=== PATIENT | female | born 1990 | race Caucasian/White ===

== ENCOUNTER → 2020-05-24 | Outpatient (CLI) | payer OTHER, SELFPAY ==
[2020-05-27 07:07] LABS: Chlamydia By Nucleic Acid AMP Negative (Negative)
[2020-05-27 12:43] LABS: Gonococcus By Nucleic Acid AMP Negative (Negative)
== END | disposition home or self-care (01) ==
LOC: LABSPEC 13:21
PROVIDERS: Visit Provider Student in an Organized Health Care Education/Training Program
DX: Z11.3 Encounter for screening for infections with a predominantly sexual mode of transmission (principal); Z32.01 Encounter for pregnancy test, result positive
CPT/HCPCS: 87491; 87591

== ENCOUNTER → 2020-06-07 09:08 | Outpatient (CLI) | payer OTHER, SELFPAY ==
[2020-06-07 10:46] LABS: Absolute Lymphocyte Count 1.84 X10^3/uL (0.83-4.51); Absolute Neutrophil Count 5.3 X10^3/uL (2.0-7.7); Basophil# 0.04 X10^3/uL; Basophil% 0.5 % (0-1); Eosinophil# 0.06 X10^3/uL; Eosinophils% 0.8 % (0-5); Hematocrit 41.6 % (37-47); Hemoglobin 12.8 g/dL (12.0-15.0); Lymphocyte # 1.84 X10^3/ul (4.0); Lymphocyte % 23.9 % (19-41); Mean Corp Hgb Conc 30.8 g/dL (32-36); Mean Corpuscular Hgb 24.4 pg (27.0-32.0); Mean Corpuscular Volume 79.4 fL (81-99); Mean Platelet Vol. 9.5 fl (6.2-12.0); Monocyte# 0.46 X10^3/uL; NRBC Flagged by Analyzer 0 % (0-5); Neutrophil # 5.27 X10^3/uL (2.7-7.7); Neutrophil % 68.5 % (47-70); Platelet Count 275 K/mm3 (150-450); RBC Distribution Width CV 18.2 % (11.6-14.6); RBC Distribution Width SD 52.1 fl (35.1-43.9); Red Blood Count 5.24 M/mm3 (4.2-5.4); White Blood Count 7.7 K/mm3 (4.4-11.0)
[2020-06-07 10:51] LABS: Glucose Challenge Gest 1H 50g 91 mg/dL (70-140)
[2020-06-07 11:35] LABS: HIV - WCH Non-Reactive (Nonreactive); Hepatitis B Surface Antigen Non-Reactive (Nonreactive); Hepatitis C Antibody Non-Reactive (Nonreactive); Rubella IgG Reactive (Nonreactive)
[2020-06-09 01:10] LABS: Prenatal RPR NONREACTIVE (NONREACTIVE)
== END ==
PROVIDERS: Visit Provider Student in an Organized Health Care Education/Training Program
DX: Z34.81 Encounter for supervision of other normal pregnancy, first trimester (principal)
CPT/HCPCS: 36415; 82950; 85025; 86703; 86762; 86803; 87086; 87088; 87340

== ENCOUNTER → 2020-09-27 08:40 | Outpatient (CLI) | payer OTHER, SELFPAY ==
[2020-09-27 10:58] LABS: Hematocrit 34.1 % (37-47); Hemoglobin 10.7 g/dL (12.0-15.0); Mean Corp Hgb Conc 31.4 g/dL (32-36); Mean Corpuscular Hgb 26.3 pg (27.0-32.0); Mean Corpuscular Volume 83.8 fL (81-99); Mean Platelet Vol. 8.8 fl (6.2-12.0); Platelet Count 263 K/mm3 (150-450); RBC Distribution Width CV 14.5 % (11.6-14.6); RBC Distribution Width SD 43.7 fl (35.1-43.9); Red Blood Count 4.07 M/mm3 (4.2-5.4); White Blood Count 11.5 K/mm3 (4.4-11.0)
[2020-09-27 11:06] LABS: Glucose Challenge Gest 1H 50g 115 mg/dL (70-140)
== END ==
PROVIDERS: Visit Provider Student in an Organized Health Care Education/Training Program
DX: Z34.82 Encounter for supervision of other normal pregnancy, second trimester (principal)
CPT/HCPCS: 36415; 82950; 85027

== ENCOUNTER → 2020-12-19 | Outpatient (CLI) | payer OTHER, SELFPAY | END | disposition home or self-care (01) | LOC: LABSPEC 17:01 | PROVIDERS: Visit Provider Obstetrics & Gynecology | DX: Z36.85 Encounter for antenatal screening for Streptococcus B (principal) | CPT/HCPCS: 87081 ==

== ENCOUNTER 2021-01-23 18:55 | Inpatient (IN) | payer OTHER, SELFPAY ==
[2021-01-23 19:21] VITALS: PULSE 91; O2SAT 98
[2021-01-23 19:22] VITALS: BP 141/94; PULSE 101; TEMP 36.5
[2021-01-23 19:42] VITALS: BMI 42.3
[2021-01-23 19:48] LABS: Absolute Lymphocyte Count 2.65 X10^3/uL (0.83-4.51); Absolute Neutrophil Count 8.2 X10^3/uL (2.0-7.7); Basophil# 0.05 X10^3/uL; Basophil% 0.4 % (0-1); Eosinophil# 0.09 X10^3/uL; Eosinophils% 0.8 % (0-5); Hematocrit 35.7 % (37-47); Hemoglobin 11.5 g/dL (12.0-15.0); Lymphocyte # 2.65 X10^3/ul (0.83-4.51); Lymphocyte % 22.5 % (19-41); Mean Corp Hgb Conc 32.2 g/dL (32-36); Mean Corpuscular Hgb 26.6 pg (27.0-32.0); Mean Corpuscular Volume 82.4 fL (81-99); Mean Platelet Vol. 9.1 fl (6.2-12.0); Monocyte# 0.75 X10^3/uL; Monocyte% 6.4 % (0-10); NRBC Flagged by Analyzer 0 % (0-5); Neutrophil # 8.17 X10^3/uL (2.7-7.7); Neutrophil % 69.2 % (47-70); Platelet Count 229 K/mm3 (150-450); RBC Distribution Width CV 15.6 % (11.6-14.6); RBC Distribution Width SD 46.5 fl (35.1-43.9); Red Blood Count 4.33 M/mm3 (4.2-5.4); White Blood Count 11.8 K/mm3 (4.4-11.0)
[2021-01-23 20:26] VITALS: BP 127/90; PULSE 86
[2021-01-23] MEDS: miSOPROStol 25 MCG TABLET VAGINAL (20:27)
[2021-01-24] VITALS (39 sets, daily range): BP systolic 88–138; BP diastolic 49–90; PULSE 56–107; TEMP 36.2–36.9; O2SAT 82–100
[2021-01-24] MEDS: miSOPROStol 25 MCG TABLET VAGINAL ×3 (00:30→08:42)
--- NOTE | 2021-01-24 07:18 | PCM.HP.BLA ---
History and Physical Date of Admission: 01/23/21 Chief complaint: Induction of labor postdates History of present illness: 30-year-old G1, P0 at 41 weeks and 3 days with ENEIDA: 01/13/2021 by 6wk U/s arrives for induction of labor postdates. Denies headache, visual changes, chest pain, shortness of breath, nausea vomiting, right upper quadrant pain. Patient states good movement. Obstetric history: G1: Current Past medical history: None Medications: None Past surgical history: Recluse teeth extraction, appendectomy Allergies: No known drug allergies Family history: Denies history DVT or PE Social history: Denies smoking, alcohol use, drug use Review of systems: Besides above pertinent positives a full review of systems was performed and found to be negative Physical exam: Vital signs: Blood pressure 127/89 pulse 85 General: Normal-appearing no acute distress HEENT: Normocephalic atraumatic no cervical of adenopathy Cardiac/respiratory: No use of accessory muscles, nonlabored breathing Abdomen: Soft, nontender, gravid Extremities: No peripheral edema normal peripheral pulses Psych: Normal affect normal demeanor nonpressured speech Labs: White blood cell count 11.8 hemoglobin 11.5 hematocrit 35.7% platelets 229. Blood type a positive antibody negative Assessment and plan: 30-year-old at 41 weeks and 3 days for induction of labor Admit labor and delivery CEFM GBS negative Cytotec 25 mcg vaginally Routine orders Anesthesia to see
--- NOTE | 2021-01-24 12:55 | PN.OBGYN_ITS ---
Subjective Subjective Patient starting to feel increased pain with contractions Objective Data Objective Data Vital Signs: Vital Signs Temp Pulse BP Pulse Ox 97.4 F L 80 134/89 H 99 01/24/21 12:17 01/24/21 12:17 01/24/21 12:17 01/24/21 07:18 Weight: 239 lb Body Mass Index (BMI) 42.3 Lab / Micro Data Result Diagrams: 01/23/21 19:30 Labs: Laboratory Results - last 24 hr 01/23/21 19:30: WBC 11.8 H, RBC 4.33, Hgb 11.5 L, Hct 35.7 L, MCV 82.4, MCH 26.6 L, MCHC 32.2, RDW Std Deviation 46.5 H, RDW Coeff of Faviola 15.6 H, Plt Count 229, MPV 9.1, Immature Gran % (Auto) 0.700, Neut % (Auto) 69.2, Lymph % (Auto) 22.5, [place] % (Auto) 6.4, Eos % (Auto) 0.8, Baso % (Auto) 0.4, Absolute Neuts (auto) 8.2 H, Absolute Lymphs (auto) 2.65, Nucleated RBC % 0 01/23/21 19:30: Blood Type A POSITIVE, Antibody Screen NEGATIVE Micro: Microbiology 01/23/21 19:35 Nasal Secretion SARS-CoV-2 Antigen (Rapid) - Final Physical Exam Const alert, oriented x3, no apparent distress, average body habitus, healthy appearing and well nourished HEENT normocephalic and moist oral mucous membranes Head and Scalp: atraumatic Face and Sinus: normal facial exam Eyes PERRL Neck full ROM Resp normal respiratory effort, no retractions and no use of accessory muscles Narrative: Cervical exam: /-3 AROM clear fluid Extremity normal to inspection, full ROM and no clubbing, cyanosis or edema Skin no rashes or lesions noted Psych mental status grossly normal, affect normal, speech normal and activity/motor behavior normal Assessment & Plan (1) : PLAN: Patient seen and examined. Starting to feel increased pain with contractions. Discussed epidural. AROM clear fluid. Will transition to Pitocin for induction
[2021-01-24] MEDS: Oxytocin 30 units/NS 500 ml 30 UNITS/500 ML IV.SOLN IV (13:14)
[2021-01-24] MEDS: Lactated Ringers 1,000 ML 50 ML IV (13:15)
[2021-01-24] MEDS: Lactated Ringers 500 ML 999 ML IV ×3 (14:41→20:22)
[2021-01-24] MEDS: fentaNYL-bupivacaine (epidural) 100 ML BAG EPIDURAL ×2 (15:25→20:04)
[2021-01-24] MEDS: Ondansetron 4 MG/2 ML Vial IV (15:50)
[2021-01-24] MEDS: 0.9% Normal Saline Single 100 ML IV.SOLN. INTRA-UTER (19:25)
[2021-01-24] MEDS: Lactated Ringers 1,000 ML 200 ML IV (20:22)
[2021-01-25] VITALS (35 sets, daily range): BP systolic 98–163; BP diastolic 38–98; PULSE 55–142; RESP 14; TEMP 36.2–37.6; O2SAT 97–100
[2021-01-25] MEDS: fentaNYL-bupivacaine (epidural) 100 ML BAG EPIDURAL ×4 (01:13→16:36)
[2021-01-25] MEDS: Lactated Ringers 1,000 ML 200 ML IV ×3 (01:46→13:04)
[2021-01-25] MEDS: Lactated Ringers 500 ML 999 ML IV ×2 (05:24→09:24)
--- NOTE | 2021-01-25 09:14 | PCM.PN.OB ---
Subjective Subjective No complaints. She is very comfortable and denies painfulness. Objective Data Objective Data Vital Signs: Vital Signs Temp Pulse BP Pulse Ox 97.6 F L 64 98/59 L 100 01/25/21 08:20 01/25/21 08:20 01/25/21 08:20 01/25/21 08:20 Weight: 108.409 kg Body Mass Index (BMI) 42.3 Intake & Output: Intake and Output for Last 24 Hours 01/23/21 01/24/21 01/25/21 23:59 23:59 23:59 Intake Total 4053.10 / 4053.10 3020.70 / 3020.70 Output Total 1800 / 1800 Balance 4053.10 / 3053.10 1220.70 / 1220.70 Lab / Micro Data Result Diagrams: 01/23/21 19:30 Micro: Microbiology 01/23/21 19:35 Nasal Secretion SARS-CoV-2 Antigen (Rapid) - Final Physical Exam Narrative GEN - NAD, AAO x 3 FHR 135, moderate variability, + late decelerations TOCO 3/10 min SVE 6/80/-2 Assessment & Plan (1) : QUALIFIERS: Weeks of gestation: 41 weeks Qualified Code(s): Z3A.41 - 41 weeks gestation of (2) 41 weeks gestation of : PLAN: 41 5/7 wga, IOL Cat II FHR Intrauterine resusc for late decelerations, will d/c pitocin if unresponsive to initial measures Ovarall reassuring maternal and status Continue to observe in labor
[2021-01-25] MEDS: 0.9% Saline Lock 10 ML Syringe IV ×2 (10:55→19:35)
[2021-01-25] MEDS: Ondansetron 4 MG/2 ML Vial IV (13:17)
[2021-01-25] MEDS: Oxytocin 30 units/NS 500 ml 30 UNITS/500 ML IV.SOLN 999 UNITS IV (17:29)
[2021-01-25] MEDS: Methylergonovine 0.2 MG/ML Ampul IM (17:31)
--- NOTE | 2021-01-25 17:56 | OP.PCM_ITS ---
Maternal Data Information Final ENEIDA: 01/13/21 Final ENEIDA Source: [place] <20 weeks [place] Doctor Who Attended Delivery: Amanda Padilla Vaginal Delivery Maternal Presentation Maternal Presentation: Medically Indicated Induction (Postdatism) Type of Induction: Cytotec Medical Reason for Induction: Post term Operative Information Date of Procedure: 01/25/21 Pre-Operative Diagnosis: Postdate Intrauterine Post-Operative Diagnosis: Postdate Intrauterine Surgery / Procedure Performed: Vacuum Assisted Vaginal Delivery Type of Anesthesia: Epidural Estimated Blood Loss: 250 cc Fluids Replaced: Crystalloid Findings Description of Procedure: Spontaneous vaginal delivery of a viable female infant with Apgars of 8/8 from an occiput anterior presentation with lightly stained meconium fluid and three-vessel lightly meconium stained placenta. Cord around the neck x1 loose. First-degree midline episiotomy extended to a second-degree midline laceration repaired with 3-0 Vicryl suture under epidural. Kiwi vacuum used x3 gentle pulls from low outlet to assist with delivery of the head due to variable decelerations and increasing maternal fatigue. Sponges okay. Delivery physician: Austin Ayala MD. Presentation: Vertex Amniotic Membrane Rupture Type: Artificial Amniotic Fluid Description: Lightly stained meconium Placental Delivery Description: Spontaneous Placenta Disposition: [facility] Cord Vessel Description: 3 Vessels Cord Entanglement: Around neck x 1, loose Cord Gases: ABG and VBG Infant A Gender: Female (1 minute): 8 (5 minute): 8 Post Vaginal Delivery Medications Given After Delivery: IV Pitocin and IM Methergin Episiotomy Description: Midline and 1st degree Laceration: Midline and 2nd degree Complication Complications: None
--- NOTE | 2021-01-25 18:04 | PCM.DC ---
Documented by User: Dr. Austin Ayala MD 01/25/21 18:05 Discharge Instructions Diet Discharge Diet: No restrictions Activity Discharge Activity: May Drive (In 1 to 2 days if not taking narcotic pain medication), May Shower and May Take a Tub Bath May resume sexual activity in: 4-6 weeks Additional Activity Instructions:: Nothing in the vagina for 4-6 weeks. You may return to work/school in 6 weeks. Dressing / Incision Call your doctor if you observe: Fever of 101 or Higher, Inability to urinate, Inability to have a bowel movement and Using more than 1 pad per hour Follow Up Care Please Follow Up With: Ignacia Hwang DO When: Call [phone] to make an appointment with your doctor in 6 weeks. Test Results: Test results from this visit will be discussed in further detail at your follow-up appointment, if applicable. Discharge Plan Admission Admit Date/Time: 01/23/21 18:55 Primary Reason for Your Visit: Vaginal Delivery Attending Provider: Ignacia Hwang Discharge Orders/Prescriptions Prescriptions: No Action Colace 50 mg Capsule 50 mg PO DAILY RF: 0 ferrous sulfate [iron] 325 mg (65 mg iron) Tablet 325 mg PO DAILY RF: 0 DHA 200 mg Capsule 1 mg PO DAILY RF: 0 Disposition Disposition (needs filled in before D/C Order can be placed): Home, Self Care Documented by User: Dr. Ignacia Hwang DO 01/27/21 08:26 Discharge Instructions Diet Discharge Diet: No restrictions Activity Discharge Activity: Return to Normal Activity May resume sexual activity in: 4-6 weeks Weight Bearing Status: Weight bearing as tolerated Lifting Restrictions: Less than 25 pounds Dressing / Incision Call your doctor if you observe: Fever of 101 or Higher, Change in Color, Using more than 1 pad per hour, Shortness of breath, Dizziness, Swelling in the ankles, Chest pain and Calf discomfort Follow Up Care Please Follow Up With: Leonid Hwang When: 2 week telehealth, 6 week Discharge Plan Admission Admit Date/Time: 01/23/21 18:55 Primary Reason for Your Visit: Vaginal Delivery Attending Provider: Ignacia Hwang Discharge Orders/Prescriptions Prescriptions: No Action Colace 50 mg Capsule 50 mg PO DAILY RF: 0 ferrous sulfate [iron] 325 mg (65 mg iron) Tablet 325 mg PO DAILY RF: 0 DHA 200 mg Capsule 1 mg PO DAILY RF: 0 Disposition Disposition (needs filled in before D/C Order can be placed): Home, Self Care
[2021-01-25] MEDS: Ibuprofen 600 MG Tablet PO (19:35)
[2021-01-25] MEDS: Acetaminophen 500 MG Tablet 1000 MG PO (19:36)
[2021-01-26] VITALS (15 sets, daily range): BP systolic 117–143; BP diastolic 75–96; PULSE 74–99; RESP 16–18; TEMP 36.3–36.7; O2SAT 97–98
[2021-01-26] MEDS: Ibuprofen 600 MG Tablet PO ×3 (02:12→22:41)
[2021-01-26] MEDS: Acetaminophen 500 MG Tablet 1000 MG PO ×3 (02:13→22:42)
--- NOTE | 2021-01-26 03:11 | NURSING ---
report given Nicolasa Cuevas RN who is assuming care of pt at this time
--- NOTE | 2021-01-26 03:21 | NURSING ---
This RN assuming care of patient and infant at this time. Report received from Elida EAST.
--- NOTE | 2021-01-26 07:33 | PN.OBGYN_ITS ---
Subjective Subjective No overnight complaints. Pain well controlled. Objective Data Objective Data Vital Signs: Vital Signs Temp Pulse Resp BP Pulse Ox 97.3 F L 83 16 117/79 97 01/26/21 04:04 01/26/21 04:05 01/26/21 04:04 01/26/21 04:05 01/25/21 23:36 Oxygen Delivery Method Room Air Weight: 239 lb Body Mass Index (BMI) 42.3 Intake & Output: Intake and Output for Last 24 Hours 01/24/21 01/25/21 01/26/21 23:59 23:59 23:59 Intake Total 4053.10 / 4053.10 6423.54 / 6423.54 Output Total 3450 / 3450 Balance 4053.10 / 3053.10 2973.54 / 2973.54 Lab / Micro Data Result Diagrams: 01/23/21 19:30 Micro: Microbiology 01/23/21 19:35 Nasal Secretion SARS-CoV-2 Antigen (Rapid) - Final Physical Exam Const alert, oriented x3, no apparent distress, average body habitus, healthy appearing and well nourished Exam Limitations: no limitations HEENT normocephalic and moist oral mucous membranes Head and Scalp: atraumatic Face and Sinus: normal facial exam Eyes PERRL Neck full ROM Resp normal respiratory effort, no retractions and no use of accessory muscles GI normal to inspection, nondistended, normoactive bowel sounds Psych mental status grossly normal, affect normal, speech normal and activity/motor behavior normal Assessment & Plan (1) Vaginal delivery: PLAN: day 1 status post vacuum-assisted vaginal delivery. Breast-feeding. Pain well controlled. Baby getting antibiotics per director of property management. Likely home tomorrow
[2021-01-27 02:55] VITALS: BP 128/84; PULSE 78; RESP 16; TEMP 36.5; O2SAT 97
[2021-01-27 03:00] VITALS: BP 128/84; PULSE 71
[2021-01-27 07:36] VITALS: BP 117/75; PULSE 87
[2021-01-27 07:38] VITALS: BP 117/75; PULSE 87; RESP 16; TEMP 36.6
--- NOTE | 2021-01-27 08:23 | PCM.PN.OB ---
Subjective Subjective day 2 status post vacuum assisted vaginal delivery. Feeling well. Baby no longer on antibiotics. Lochia minimal. Breast-feeding. Objective Data Objective Data Vital Signs: Vital Signs Temp Pulse Resp BP Pulse Ox 97.8 F 87 16 117/75 97 01/27/21 07:38 01/27/21 07:38 01/27/21 07:38 01/27/21 07:38 01/27/21 02:55 Oxygen Delivery Method Room Air Weight: 108.409 kg Body Mass Index (BMI) 42.3 Intake & Output: Intake and Output for Last 24 Hours 01/25/21 01/26/21 01/27/21 23:59 23:59 23:59 Intake Total 6423.54 / 6423.54 Output Total 3450 / 3450 Balance 2973.54 / 2973.54 Lab / Micro Data Result Diagrams: 01/23/21 19:30 Micro: Microbiology 01/23/21 19:35 Nasal Secretion SARS-CoV-2 Antigen (Rapid) - Final Physical Exam Const alert, oriented x3 and no apparent distress HEENT normocephalic Head and Scalp: atraumatic Eyes PERRL Neck full ROM Resp normal respiratory effort and no retractions Cardio regular rate GI normal to inspection, nondistended, normoactive bowel sounds GI Narrative: Uterus 2 cm below umbilicus Extremity normal to inspection Extremity Narrative: Mild pedal edema General Extremity: calf tenderness Neuro no focal motor deficits and no sensory deficits noted Psych mental status grossly normal Assessment & Plan (1) Vaginal delivery: PLAN: day 2 status post vacuum-assisted vaginal delivery. Baby is now off antibiotics and okay for discharge. Home today. 2-week telehealth visit and 6-week visit.
[2021-01-27] MEDS: Senna/Docusate Sodium 1 Tablet PO (08:43)
[2021-01-27] MEDS: Ibuprofen 600 MG Tablet PO (08:43)
[2021-01-27 12:28] VITALS: BP 126/78; PULSE 82; PULSE 86; RESP 16; TEMP 36.4; O2SAT 98; O2SAT 99
[2021-01-27 12:39] VITALS: BP 126/78; PULSE 82; RESP 16; TEMP 36.4; O2SAT 99
--- NOTE | 2021-01-31 12:34 | NURSING ---
pt doing well and has appointment with today
== END 2021-01-27 12:48 | disposition home or self-care (01) | DRG 807 ==
PROVIDERS: Admitting Provider Obstetrics & Gynecology; Visit Provider Student in an Organized Health Care Education/Training Program
DX: O48.0 Post-term pregnancy (principal); Z37.0 Single live birth; O70.1 Second degree perineal laceration during delivery; O75.81 Maternal exhaustion complicating labor and delivery; O76 Abnormality in fetal heart rate and rhythm complicating labor and delivery; O77.0 Labor and delivery complicated by meconium in amniotic fluid; O69.81X0 Labor and delivery complicated by cord around neck, without compression, not applicable or unspecified; Z20.822 Contact with and (suspected) exposure to COVID-19; Z3A.41 41 weeks gestation of pregnancy
CPT/HCPCS: 59025; 59050; 85025; 86850; 86900; 86901; 87426; 99218; J7120; A4216; G0378; J2405

== ENCOUNTER 2021-04-04 12:31 | Emergency (ER) | payer OTHER, SELFPAY ==
[2021-04-04 12:33] VITALS: BP 126/104; PULSE 105; RESP 18; TEMP 36.6; O2SAT 96; BMI 37.9
[2021-04-04 13:22] LABS: Absolute Lymphocyte Count 0.73 X10^3/uL (0.83-4.51); Absolute Neutrophil Count 13.2 X10^3/uL (2.0-7.7); Basophil# 0.06 X10^3/uL; Basophil% 0.4 % (0-1); Eosinophil# 0.02 X10^3/uL; Eosinophils% 0.1 % (0-5); Hematocrit 44.2 % (37-47); Lymphocyte # 0.73 X10^3/ul (0.83-4.51); Lymphocyte % 4.9 % (19-41); Mean Corp Hgb Conc 31.7 g/dL (32-36); Mean Corpuscular Hgb 26.1 pg (27.0-32.0); Mean Corpuscular Volume 82.3 fL (81-99); Mean Platelet Vol. 8.7 fl (6.2-12.0); Monocyte# 0.73 X10^3/uL; Monocyte% 4.9 % (0-10); NRBC Flagged by Analyzer 0 % (0-5); Neutrophil # 13.24 X10^3/uL (2.7-7.7); Neutrophil % 89.3 % (47-70); Platelet Count 273 K/mm3 (150-450); RBC Distribution Width CV 14.3 % (11.6-14.6); RBC Distribution Width SD 42.2 fl (35.1-43.9); Red Blood Count 5.37 M/mm3 (4.2-5.4); White Blood Count 14.8 K/mm3 (4.4-11.0)
[2021-04-04 13:33] LABS: Anion Gap 6 (5-15); BUN 16 mg/dL (7-18); BUN/Creat Ratio 18.6 RATIO (10-20); Calcium,Total 9.4 mg/dL (8.5-10.1); Chloride 109 mmol/L (98-107); Creatinine, Serum 0.86 mg/dL (0.55-1.02); EST Glomerular Filtration Rate 82 mL/min (>60); Est Glom Filt Rate - Afr Amer 100 mL/min (>60); Estimated Creatinine Clearance 79.12 ml/min; Glucose 117 mg/dL (74-106); Potassium 3.7 mmol/L (3.5-5.1); Sodium Level 141 mmol/L (136-145)
[2021-04-04 13:40] LABS: Internal QC Validated? YES +Cl - CLEAR BKGD; Pregnancy, Serum, hCG Quali. NEGATIVE Negative
[2021-04-04 14:29] VITALS: BP 122/81; PULSE 84; RESP 16; O2SAT 96
--- NOTE | 2021-04-04 14:32 | CT_ITS ---
INDICATION: ABDOMINAL PAIN EXAMINATION: CT Abdomen And Pelvis W/ Contrast Injection TECHNIQUE: Helically acquired images were obtained of the abdomen and pelvis after IV contrast. A radiation dose optimization technique was used for this scan. IV Contrast dosage and agent: Oral and amp; IV Gastrografin and amp; 100mL Isovue-300 Oral contrast: Yes. COMPARISON: None. FINDINGS: Visualized lung bases: Unremarkable Liver: Unremarkable Gallbladder: Unremarkable Spleen: Unremarkable Pancreas: Unremarkable Adrenal Glands: Unremarkable Kidneys: Unremarkable Vasculature: Unremarkable GI Tract: Status post appendectomy. Few loops of small bowel demonstrate mild circumferential wall thickening and subtle surrounding mesenteric fat stranding. Lymphadenopathy: None Peritoneum: No ascites. Bladder: Unremarkable Reproductive organs: Unremarkable Bones/Soft tissues: No suspicious osseous or soft tissue lesions CT/Abdomen/Pelvis WITH Contrast IMPRESSION: Findings suspicious for mild/early enteritis. Electronically Signed: Brandon Renner MD at 16:45 EST Tel , Service support ,
--- NOTE | 2021-04-04 14:33 | EDS_ITS ---
HPI HPI - GI History of Present Illness Chief Complaint: Abd Pain Informant: patient Abdominal Pain/Flank Pain Onset: Today Context: Gradual Onset Timing: Continuous Quality: Sharp and Stabbing Location: Epigastric, RUQ and LUQ Worsened by: - (Drinking and vomiting) Relieved by: Nothing Nausea/Vomiting/Emesis GI Symptom: Positive for Nausea and Vomiting Diarrhea/Melena/Hematochezia GI Symptom: Negative for Diarrhea and Melena Associated Symptoms Associated Symptoms: Negative for Dysuria and Hematuria Narrative Narrative: Patient presents with abdominal pain that began today. Patient states that C has had some back pain and nausea and vomiting last week. Patient states that today she started having upper abdominal pain. Patient describes it as sharp and stabbing. Patient states it is over the upper abdomen. Patient states it is worse after drinking fluids which causes her to vomit and vomit makes her pain worse. Patient denies any hematemesis or coffee-ground emesis. Patient denies any diarrhea or melena. Patient states she had noted some blood in her stools but had a recent vaginal delivery and currently has some hemorrhoids because of that. PFSH PFSH Medical History Non-smoker no medical history Home Medications docosahexaenoic acid [ DHA] 1 mg PO DAILY 01/23/21 [History Last Taken 01/22/21] docusate sodium [Colace] 50 mg PO DAILY 01/23/21 [History Last Taken 01/22/21] amoxicillin-pot clavulanate 875 mg PO Q12H #20 tablet 04/04/21 [Rx Last Taken Unknown] Allergy/AdvReac Type Severity Reaction Status Date / Time No Known Allergies Allergy Verified 01/23/21 19:36 Surgical History History of appendectomy History of surgery no surgical history Social History Smoking Status: Never smoker ROS ROS ED Constitutional Constitutional ED: Denies chills or fever(s) Eyes Eyes: Denies blurry vision or change in vision ENT ENT ED: Reports rhinorrhea; Denies sore throat Cardiovascular Cardiovascular: Denies chest pain or palpitations Respiratory/Chest Respiratory/Chest: Denies cough or dyspnea Gastrointestinal Gastrointestinal: Reports abdominal pain, nausea and vomiting Genitourinary Genitourinary ED: Denies dysuria or hematuria Musculoskeletal Musculoskeletal: Reports back pain; Denies neck pain Integumentary Reports rash; Denies abscess Neurologic Neurologic: Denies headache(s) or weakness Allergic/Immunologic Allergic/Immunologic ED: Denies mouth swelling or urticaria EXAM Physical Exam Const Vital Signs: 04/04/21 12:33 04/04/21 14:29 04/04/21 16:17 Temperature 97.8 F Temperature Source Temporal Pulse Rate 105 H 84 71 Respiratory Rate 18 16 16 Blood Pressure 126/104 H 122/81 H 120/84 H Blood Pressure Mean 111 94 96 Pulse Ox 96 96 99 Oxygen Delivery Method Room Air Room Air Positive well nourished and well developed General Appearance ED: well developed HEENT Reports moist mucous membranes Neck supple and no JVD Resp normal respiratory effort and clear to auscultation bilaterally Cardio regular rate, regular rhythm and no murmurs GI normal to inspection, nondistended, normoactive bowel sounds and non-distended Auscultation: normoactive bowel sounds Palpation: soft and tender epigastric, LUQ and RUQ; Negative for guarding or rebound tenderness present Extremity normal to inspection General Extremety ED: Negative for edema or tenderness General Extremity: Negative for edema Neuro oriented x3, CN's II-XII intact bilaterally and no sensory deficits noted Sensorium / Orientation: alert Motor Exam: strength 5/5 throughout Psych mental status grossly normal Skin no rashes or lesions noted MDM MDM MDM Narrative Medical decision making narrative: CBC shows a mild leukocytosis of 14.8. Hemoglobin and hematocrit were normal. Platelets were normal. Basic metabolic profile was essentially within normal limits. Serum hCG was negative. Liver profile was normal. Lipase was normal. Urinalysis does not show any evidence of urinary tract infection. CT scan of the abdomen and pelvis was obtained. T here is mild circumferential wall thickening and subtle surrounding fat stranding of the small bowel. This is consistent with enteritis. Patient was given a prescription for Augmentin. Patient was referred to primary care physician global vp [employer] content marketing. Patient was also instructed to follow-up with her MAIL AGENT in 5 to 7 days. Patient understood and was agreeable with the plan. All questions were answered. Lab Data Attestation: I reviewed the patient's lab results. Labs: Laboratory Results - last 24 hr 04/04/21 04/04/21 04/04/21 13:10 13:10 13:10 WBC 14.8 H RBC 5.37 Hgb 14.0 Hct 44.2 MCV 82.3 MCH 26.1 L MCHC 31.7 L RDW Std Deviation 42.2 RDW Coeff of Faviola 14.3 Plt Count 273 MPV 8.7 Immature Gran % (Auto) 0.400 Neut % (Auto) 89.3 H Lymph % (Auto) 4.9 L [place] % (Auto) 4.9 Eos % (Auto) 0.1 Baso % (Auto) 0.4 Absolute Neuts (auto) 13.2 H Absolute Lymphs (auto) 0.73 L Nucleated RBC % 0 Sodium 141 Potassium 3.7 Chloride 109 H Carbon Dioxide 26.0 Anion Gap 6 BUN 16 Creatinine 0.86 Estim Creat Clear Calc 79.12 Est GFR (MDRD) Af Amer 100 Est GFR (MDRD) Non-Af 82 BUN/Creatinine Ratio 18.6 Glucose 117 H Calcium 9.4 Total Bilirubin Direct Bilirubin AST ALT Alkaline Phosphatase Total Protein Albumin Globulin Lipase Serum , Qual NEGATIVE Urine Color Urine Clarity Urine pH Ur Specific [place] Urine Protein Urine Glucose (UA) Urine Ketones Urine Occult Blood Urine Nitrite Urine Bilirubin Urine Urobilinogen Ur Leukocyte Esterase Urine RBC Urine WBC Ur Squamous Epith Cells Urine Bacteria Urine Mucus 04/04/21 04/04/21 13:10 14:51 WBC RBC Hgb Hct MCV MCH MCHC RDW Std Deviation RDW Coeff of Faviola Plt Count MPV Immature Gran % (Auto) Neut % (Auto) Lymph % (Auto) [place] % (Auto) Eos % (Auto) Baso % (Auto) Absolute Neuts (auto) Absolute Lymphs (auto) Nucleated RBC % Sodium Potassium Chloride Carbon Dioxide Anion Gap BUN Creatinine Estim Creat Clear Calc Est GFR (MDRD) Af Amer Est GFR (MDRD) Non-Af BUN/Creatinine Ratio Glucose Calcium Total Bilirubin 0.30 Direct Bilirubin < 0.05 AST 11 L ALT 25 Alkaline Phosphatase 90 Total Protein 8.3 H Albumin 3.8 Globulin 4.5 H Lipase 112 Serum , Qual Urine Color Yellow Urine Clarity Clear Urine pH 5.0 Ur Specific [place] 1.020 Urine Protein 15 H Urine Glucose (UA) Normal Urine Ketones 15 H Urine Occult Blood Negative Urine Nitrite Negative Urine Bilirubin 1 H Urine Urobilinogen Normal Ur Leukocyte Esterase 25 H Urine RBC 0 SEEN Urine WBC 0-5 SEEN Ur Squamous Epith Cells 0-5 SEEN Urine Bacteria RARE Urine Mucus 0 SEEN Discharge Plan Triage Chief Complaint: Abd Pain Other Complaint: Nausea/Vomiting ED Provider: Charlie Marcial Dx/Rx/DC Orders Clinical Impression: Enteritis Instructions: ED Understanding Colitis Prescriptions: New amoxicillin-pot clavulanate [amoxicillin-pot clavulanate] 875 MG tablet 875 mg PO Q12H Qty: 20 RF: 0 No Action Colace 50 mg Capsule 50 mg PO DAILY RF: 0 DHA 200 mg Capsule 1 mg PO DAILY RF: 0 Primary Care Provider: Ignacia Hwang Referrals: Ignacia Hwang DO [Primary Care Provider] - 5-7 Days Nupur Cardoso MD [STAFF PHYSICIAN] - 5-7 Days Disposition Disposition: Home, Self Care
[2021-04-04 15:04] LABS: Mucous, Urine 0 SEEN /hpf (<or=2+); Red Blood Cells-Urine 0 SEEN /hpf (0-5)
[2021-04-04 15:06] LABS: AST(SGOT) 11 U/L (15-37); Alanine Aminotransfer ALT/SGPT 25 U/L (13-56); Albumin, Serum 3.8 g/dL (3.2-5.0); Alkaline Phosphatase 90 U/L (45-117); Bilirubin, Direct < 0.05 mg/dL (0.00-0.30); Globulin 4.5 g/dL (2.2-4.2); Lipase 112 U/L (73-393); Protein, Total 8.3 g/dL (6.4-8.2)
[2021-04-04 15:16] LABS: Color, Urine Yellow (Yellow); Glucose, Dipstick Normal (Normal); Ketone-Dipstick 15 mg/dl (Negative); Leukocyte Esterase-Dipstick 25 /ul (Negative); Nitrite-Dipstick Negative (Negative); Occult Blood-Urine Negative /ul (Negative); Protein-Dipstick 15 mg/dl (Negative); Urine Clarity Clear (Clear); Urine Urobilinogen Normal (Normal)
[2021-04-04 15:19] LABS: Urine Bilirubin Dipstick 1 mg/dL (Negative)
[2021-04-04 15:28] LABS: Bacteria RARE /hpf (None Seen); Squamous Epithelial Cells - UA 0-5 SEEN /hpf (5-10); White Blood Cells 0-5 SEEN /hpf (0-5)
[2021-04-04 16:17] VITALS: BP 120/84; PULSE 71; RESP 16; O2SAT 99
[2021-04-04] MEDS: Ondansetron 4 MG/2 ML Vial IV (18:03)
[2021-04-04] MEDS: Amox/Clavulanate 875 MG Tablet PO (18:03)
[2021-04-04 18:05] VITALS: BP 121/74; PULSE 87; RESP 16; O2SAT 99
== END 2021-04-04 18:07 | disposition home or self-care (01) ==
PROVIDERS: Emergency Provider Emergency Medicine; PCP Student in an Organized Health Care Education/Training Program
DX: K52.9 Noninfective gastroenteritis and colitis, unspecified (principal); K64.9 Unspecified hemorrhoids
CPT/HCPCS: 74177; 80048; 80076; 81001; 83690; 84703; 85025; 96374; 99284; Q9967; A4216; J2405

== ENCOUNTER 2021-06-13 13:44 | Day surgery (SDC) | payer OTHER, SELFPAY ==
[2021-06-13 14:09] VITALS: BP 133/89; PULSE 83; RESP 16; TEMP 36.6; O2SAT 98; BMI 36.3
[2021-06-13 14:12] LABS: Internal QC Validated? YES +Cl - CLEAR BKGD; Pregnancy, Urine Negative Negative
[2021-06-13] MEDS: Lactated Ringers 1,000 ML 15 ML IV (14:13)
--- NOTE | 2021-06-13 14:52 | PCM.HP.BLA ---
History and Physical Date of Admission: 06/13/21 MYRTLE LLOYD, is a 31 F who presents to the office today for further evaluation of abdominal pain that sent her to the emergency room. She has been having worsening crampy abdominal pain associated with multiple episodes of diarrhea. She had not had any antibiotics. She did recently give of her child at home prior to her coming into the hospital. She has no family history of inflammatory bowel disease. She did not have any recent travel. She does not take any medicines on a daily basis. She is breast-feeding. She was referred by PCP for colitis/enteritis diagnoses received during [facility] ED visit 04.04.21. She gave 01.30.2021 without complications. Presented to [facility] ED 04.04.21 for evaluation of back pain, nausea and vomiting that started one week prior to with upper abdominal pain that began the same day. Exacerbation caused with fluid intake causing emesis. Reports some blood in stool, though following her vaginal delivery she had hemorrhoids. ED workup found elevated WBC. Her CT abd/pel found mild circumferential wall thickening and subtle surrounding fat stranding of small bowel consistent with enteritis. Prescribed augmentin and discharged. Since ED visit she has had five more episodes of upper abdominal pain that radiates into her back. With the abdominal pain she reports diarrhea with mucous at onset. No pattern noted. Four weeks ago she changed her diet to eliminate red meat and has not had another episode with pain since this change. Pain with BM feels more related to hemorrhoids with some bright red blood. ROS Const Constitutional: No anorexia, fatigue, fever(s), weight change or sleep problems Eyes Eyes: No change in vision ENT ENT: No abnormal hearing, difficulty swallowing, mouth lesions, tongue swelling or throat swelling Resp Respiratory: No cough or shortness of breath Cardio Cardiology: No chest pain at rest, chest pain with exertion, shortness of breath or dyspnea on exertion Gastro GI: No difficulty swallowing Genitourinary-Female: No difficulty urinating or burning urination Musc Musculoskeletal: No joint pain, joint swelling, muscle weakness or decreased muscle mass Skin Skin: No hair loss in leg, yellowing of the eye, itchy eyes, rash, skin ulcer or skin swelling Neuro Neurology: No abnormal hearing, abnormal movements, confusion, unsteady gait/balance or memory loss Psych Psychiatric: No anxiety, No confusion and No memory loss Endo Endocrine: No fatigue or weight change Aller/Imm Allergy/Immunologic: No itchy eyes, throat swelling or tongue swelling Ralph/Lymp Hematologic/Lymphatic: No easy bleeding, easy bruising or enlarged lymph nodes Exam Const General: cooperative and comfortable Nutritional Appearance: average body habitus and well nourished [facility] Head: normal to inspection Ears: hearing grossly normal bilaterally Nose: external nose normal Face and sinus: normal facial exam Mouth: oral mucosae normal Throat: posterior oropharynx normal Eyes General: appearance normal, both eyes and all related structures Neck Neck: normal visual inspection Chest Chest palpation & inspection: normal inspection of the chest and normal palpation of entire chest wall Resp Effort & Inspection: normal respiratory effort Auscultation: Bilateral: Clear to Auscultation Cardio Palpation: normal PMI Rate: regular rate Rhythm: regular rhythm GI Inspection: normal to inspection Auscultation: normal bowel sounds Percussion: normal to percussion Palpation: no hepatosplenomegaly Skin General: no rashes or lesions noted Neuro General: patient alert Extrem General: normal to inspection Psych Affect: normal affect Quality Reporting Tobacco Screening ([facility] 138) Smoking Status: Never smoker Assessment and Plan Assessment and Plan (1) Non-specific colitis: Plan - Dr. Fan Friend, DO: The differential diagnosis for her colitis that was seen on imaging in her presentation currently is Crohn's disease graded in ulcerative colitis. Also on the differential diagnosis is ischemic colitis or microscopic colitis. It does not seem like it is infectious colitis. However, we will order stool cultures and check for C. difficile. She will undergo a colonoscopy with evaluation of her colon and her terminal ileum for signs of inflammatory bowel disease. We will also take biopsies to her small bowel and colon. She will need biochemical testing with a ESR, CRP, LDH and possibly SIDRA with IBD sgi. I have re-examined the patient. There are no clinical changes since date of exam.
--- NOTE | 2021-06-13 15:00 | COLBX_PTH ---
PATIENT: MYRTLE LLOYD LOC: EN U#:[id number] AGE/SX: 31/F ROOM: RE06/13/[address]: Dr. Meng Randolph DO : 1990 BED: DIS: 06/13/2021 SPEC #: [id number] RECD: 06/13/21 15:51 STATUS: MYAH RESharon #: [id number] CASH: 06/13/21 15:[address]: Meng Randolph DEPT: SURGICAL PATHOLOGY RECD BY: Agnes Bangura ENTERED: 06/14/21 09:09 SP TYPE: COLON BX OTHR DR: Dr. Ignacia Hwang, DO Tissues: A - Ileum, NOS B - COLON BIOPSY Procedures: Surgery Specimen Level IV HEADER OPERATION: Colonoscopy (MAC), biopsy PRE-OP DIAGNOSIS: Nonspecific colitis TISSUE SUBMITTED: A ? Terminal ileum biopsy, B ? Random colonic biopsy MICROSCOPIC DIAGNOSIS A. Terminal ileum, biopsy: No pathologic change. See comment. B. Colon, random biopsy: No pathologic change. No evidence of colitis. AM:rhett 06/15/2021 COMMENT A. Prominent benign-appearing lymphoid aggregates are present. MICROSCOPIC DESCRIPTION Slides are reviewed. GROSS DESCRIPTION A - Received in fixative is one container labeled with the patient's name and designated terminal ileum biopsy. The specimen consists of multiple irregular fragments of light malagon soft tissue that in aggregate measure 1 x 0.5 x 0.1 cm. The specimen is totally submitted in one cassette. B - Received in fixative is one container labeled with the patient's name and designated random colonic biopsy. The specimen consists of multiple irregular fragments of light malagon soft tissue that in aggregate measure 2 x 1 x 0.1 cm. The specimen is totally submitted in one cassette. / AM:rhett 06/14/2021 TC:5 CPT: 63859 x2
[2021-06-13 15:34] VITALS: BP 133/89; BP 99/47; PULSE 62; RESP 16; TEMP 37.1; O2SAT 99
[2021-06-13 15:40] VITALS: BP 133/89; BP 99/67; PULSE 63; RESP 16; O2SAT 100
[2021-06-13 15:45] VITALS: BP 133/89; BP 96/65; PULSE 60; RESP 16; O2SAT 100
[2021-06-13 15:51] VITALS: BP 115/80; BP 133/89; PULSE 60; RESP 16; TEMP 36.5; O2SAT 100
[2021-06-13 16:00] VITALS: BP 133/89
--- NOTE | 2021-06-13 16:07 | OP.COLON_ITS ---
Patient Name: Franchesca Huber Procedure Date: 06/13/2021 2:51 PM Date of : 1990 Age: 31 Procedure: Colonoscopy Indications: Generalized abdominal pain, Clinically significant diarrhea of unexplained origin Providers: Meng Randolph DO Referring MD: Meng Randolph DO Patient Profile: This is a 31 year old female. Refer to note in patient chart for documentation of history and physical. Last Colonoscopy: none. The patient's first colonoscopy is today. Complications: No immediate complications. Procedure: Pre-Anesthesia Assessment: - Prior to the procedure, a History and Physical was performed, and patient medications and allergies were reviewed. The patient is competent. The risks and benefits of the procedure and the sedation options and risks were discussed with the patient. All questions were answered and informed consent was obtained. Patient identification and proposed procedure were verified. Mental Status Examination: alert and oriented. Airway Examination: normal oropharyngeal airway and neck mobility. Respiratory Examination: clear to auscultation. CV Examination: normal. Prophylactic Antibiotics: The patient does not require prophylactic antibiotics. Prior Anticoagulants: The patient has taken no previous anticoagulant or antiplatelet agents. After reviewing the risks and benefits, the patient was deemed in satisfactory condition to undergo the procedure. The anesthesia plan was to use minimal sedation / analgesia (anxiolysis). Immediately prior to administration of medications, the patient was re-assessed for adequacy to receive sedatives. The heart rate, respiratory rate, oxygen saturations, blood pressure, adequacy of pulmonary ventilation, and response to care were monitored throughout the procedure. The physical status of the patient was re-assessed after the procedure. After I obtained informed consent, the scope was passed under direct vision. Throughout the procedure, the patient's blood pressure, pulse, and oxygen saturations were monitored continuously. The pediatric colonoscope was introduced through the anus and advanced to 10 cm into the ileum. The colonoscopy was performed without difficulty. The patient tolerated the procedure well. The quality of the bowel preparation was good. Scope In: 3:03:17 PM Scope Withdrawal Time 0 hours 15 minutes 45 seconds Scope Out: 3:27:35 PM Total Procedure Duration Time 0 hours 24 minutes 18 seconds Findings: The perianal and digital rectal examinations were normal. A localized area of mucosa in the distal ileum was mildly erythematous. Biopsies were taken with a cold forceps for histology. Verification of patient identification for the specimen was done. Estimated blood loss was minimal. The sigmoid colon was moderately redundant. Biopsies for histology were taken with a cold forceps from the ascending colon, right colon, left colon, transverse colon, right transverse colon, left transverse colon, descending colon, sigmoid colon, rectum and rectosigmoid colon for evaluation of microscopic colitis. There was moderate spasm at the hepatic flexure. Biopsies were taken with a cold forceps for histology. Estimated blood loss was minimal. Impression: - Erythematous mucosa in the distal ileum. Biopsied. - Redundant colon. - Moderate colonic spasm consistent with irritable bowel syndrome. Biopsied. Recommendation: - Discharge patient to home. - Resume previous diet. - Continue present medications. - Await pathology results. - Repeat colonoscopy in 5 years for surveillance. - Return to GI office. Meng Randolph DO 06/13/2021 4:04:48 PM This report has been signed electronically. Number of Addenda: 1 Note Initiated On: 06/13/2021 2:51 PM Addendum Number: 1 Addendum Date: 01/08/2022 6:40:04 AM MAC was used for sedation during this procedure. Meng Randolph DO 01/08/2022 6:40:08 AM This report has been signed electronically.
--- NOTE | 2021-06-13 17:17 | OP.CCLET_ITS ---
01/08/2022 Ignacia Hwang Do Re : Colonoscopy procedure for Franchesca Huber Dear Dr. Hwang This procedure was performed on Sunday, June 13, 2021. My impressions and recommendations are as follows: Impressions : - Erythematous mucosa in the distal ileum. Biopsied. - Redundant colon. - Moderate colonic spasm consistent with irritable bowel syndrome. Biopsied. Recommendations : - Discharge patient to home. - Resume previous diet. - Continue present medications. - Await pathology results. - Repeat colonoscopy in 5 years for surveillance. - Return to GI office. My findings are described in the full procedure note, which is enclosed. If I can be of further assistance, please feel free to contact me at . Sincerely, Meng Randolph, 06/13/2021 4:04:48 PM This report has been signed electronically.
== END 2021-06-13 23:59 | disposition home or self-care (01) ==
LOC: EN 13:48 → AC 13:48
PROVIDERS: Anesthesiology; PCP Student in an Organized Health Care Education/Training Program; Referring Provider Internal Medicine Gastroenterology; Visit Provider Internal Medicine Gastroenterology
PROC: 0DJD8ZZ Inspection of Lower Intestinal Tract, Via Natural or Artificial Opening Endoscopic (ICD-10-PCS; CPT 45378; principal; 2021-06-13 14:55)
DX: K58.9 Irritable bowel syndrome, unspecified (principal); R10.84 Generalized abdominal pain; Q43.8 Other specified congenital malformations of intestine; Z20.822 Contact with and (suspected) exposure to COVID-19; R19.7 Diarrhea, unspecified
CPT/HCPCS: 45380; 81025; 87426; 87493; 87506; 88305; C9803; J7120; J2405

== ENCOUNTER → 2023-02-07 | Outpatient (CLI) | payer OTHER, SELFPAY ==
[2023-02-11 22:07] LABS: Chlamydia By Nucleic Acid AMP Negative (Negative); Gonococcus By Nucleic Acid AMP Negative (Negative)
[2023-02-13 11:08] LABS: HPV APTIMA, High Risk Negative (Negative)
== END | disposition home or self-care (01) ==
LOC: LABSPEC 16:45
PROVIDERS: Referring Provider Advanced Practice Midwife; Visit Provider Advanced Practice Midwife
DX: Z34.90 Encounter for supervision of normal pregnancy, unspecified, unspecified trimester (principal); Z3A.00 Weeks of gestation of pregnancy not specified
CPT/HCPCS: 87086; 87088; 87491; 87591; 87624; 88175; G0145

== ENCOUNTER → 2023-02-20 | Outpatient (CLI) | payer OTHER, SELFPAY ==
[2023-02-20 09:46] LABS: Absolute Lymphocyte Count 2.32 X10^3/uL (0.83-4.51); Absolute Neutrophil Count 5.5 X10^3/uL (2.0-7.7); Basophil# 0.06 X10^3/uL; Basophil% 0.7 % (0-1); Eosinophil# 0.06 X10^3/uL; Eosinophils% 0.7 % (0-5); Hematocrit 37.5 % (37-47); Hemoglobin 11.7 g/dL (12.0-15.0); Lymphocyte # 2.32 X10^3/ul (0.83-4.51); Lymphocyte % 26.9 % (19-41); Mean Corp Hgb Conc 31.2 g/dL (32-36); Mean Corpuscular Hgb 24.2 pg (27.0-32.0); Mean Corpuscular Volume 77.5 fL (81-99); Mean Platelet Vol. 8.6 fl (6.2-12.0); Monocyte# 0.63 X10^3/uL; Monocyte% 7.3 % (0-10); NRBC Flagged by Analyzer 0 % (0-5); Neutrophil # 5.51 X10^3/uL (2.7-7.7); Neutrophil % 64.1 % (47-70); Platelet Count 260 K/mm3 (150-450); RBC Distribution Width CV 15.7 % (11.6-14.6); RBC Distribution Width SD 43.8 fl (35.1-43.9); Red Blood Count 4.84 M/mm3 (4.2-5.4); White Blood Count 8.6 K/mm3 (4.4-11.0)
[2023-02-20 10:45] LABS: Hemoglobin A1c 5.1 % (3.8-5.6)
[2023-02-20 13:21] LABS: HIV - WCH Non-Reactive (Nonreactive); Hepatitis B Surface Antigen Non-Reactive (Nonreactive); Hepatitis C Antibody Non-Reactive (Nonreactive); Rubella IgG Reactive (Nonreactive); Syphilis Antibodies Non-reactive
== END | disposition home or self-care (01) ==
PROVIDERS: Referring Provider Advanced Practice Midwife; Visit Provider Advanced Practice Midwife
DX: Z34.90 Encounter for supervision of normal pregnancy, unspecified, unspecified trimester (principal)
CPT/HCPCS: 36415; 83036; 85025; 86703; 86762; 86780; 86803; 86850; 86900; 86901; 87340

== ENCOUNTER → 2023-04-30 | Outpatient (CLI) | payer OTHER, SELFPAY ==
--- NOTE | 2023-04-30 08:02 | US_ITS ---
EXAM: US SECOND OR THIRD TRIMESTER , TRANSABDOMINAL CLINICAL INDICATION: ANATOMY- TECHNIQUE: Transabdominal obstetrical ultrasound of the maternal pelvis and a second or third trimester with image documentation. COMPARISON: No relevant prior studies available. FINDINGS: FETUS: Single fetus. Transient changes of nuchal cord. HEART RATE: cardiac rate 150 bpm. PRESENTATION: Variable lie and presentation. PLACENTA: Posterior fundal placenta. No placenta previa. No abruption. AMNIOTIC FLUID: Amniotic fluid index is normal. ANATOMY: Normal intracranial anatomy. Normal four-chamber heart. Normal diaphragm, stomach, abdominal wall, cord insertion, kidneys and bladder. Three-vessel cord. Intact cervical thoracic and lumbosacral spine. Normal upper and lower extremities. BIOMETRICS GESTATIONAL AGE: Estimated gestational age by measurements is 20 weeks 0 days. Clinical gestational age is 20 weeks 3 days. ENEIDA: Clinical ENEIDA is September 14, 2023. EFW: Estimated weight is 338 g. BPD: Biparietal diameter is 4.4 cm. HC: Head circumference is 17.5 cm. AC: Abdominal circumference is 15.3 cm. FL: Femur length is 3.2 cm. Transcerebellar diameter 2.0 cm. MATERNAL: UTERUS: Normal. No myometrial mass. CERVIX: Cervix is closed measuring 3.6 cm in length. ADNEXA: Normal. No adnexal masses. FREE FLUID: None. US/OB Anatomy w/ Transvaginal IMPRESSION: 1. Single live 20 week 3 day intrauterine gestation. 2. No anatomical abnormalities are noted. 3. Transient changes of nuchal cord. Electronically Signed: Jl Molina MD at 12:44 EST ,
--- OUTSIDE RECORDS SUMMARY | 2023-04-30 08:21 | XMS RPT_ITS | CCD ---
Author Name Unknown Address [address] [place] [address] Organization [facility] Care Team Providers Care Lye Treater Name Role Phone Nupur Cardoso MD Unavailable [phone] Friend, Dr. Fan Unavailable Fast DO, Mary A Unavailable Brianna Gallegos CMA Unavailable Unavailable Unavailable Unavailable Medications Completed/Discontinued Medications Medication Drug Class(es) Dates Sig (Normalized) Sig (Original) amoxicillin 875 mg / clavulanate 125 mg oral tablet (1 source) Penicillin-class Antibacterial take 1 tablet by mouth every twelve hours Amoxicillin-Pot Clavulanate 875-125 MG Oral Tablet po q12hrs (875-125 MG) Active Comments: #20 given on 04/04/21 @ [facility] Problems Active Problems Problem Classification Problem Date Documented Da te Episodic/Chronic Noninfectious gastroenteritis (2 sources) Colitis; Translations: [Colitis] 04-11-2021 Episodic Past or Other Problems Problem Classification Problem Date Documented Da te Episodic/Chronic Unclassified (1 source) Unclassified (1 source) Nonsmoker Results Test Name Value Interpretation Reference Range Facil ity Vital Signs Date Time Vital Sign Value Performing Clinician Faci lity 04-11-2021 13:23-0500 Body height 165.1 cm Brianna Gallegos CMA Comprehensiv e Internal Medicine; [facility] Work Phone: 04-11-2021 13:23-0500 Body temperature 97.2 [degF] Brianna Gallegos CMA Comprehensi ve Internal Medicine; [facility] Work Phone: Encounters Encounter Date Encounter Type Care Provider Facility Start: 04-11-2021 End: 04-11-2021 Office outpatient visit 25 minutes Nupur Cardoso MD Work Phone: [facility] Plan of Treatment Date Care Activity Detail Author Start: 04-11-2021 Procedure Education Eprescribed prescriptions (G8553) [facility] Work Phone: Start: 04-11-2021 Beta 2 glycoprotein i antibody each Antiphospholipid atb (92228) [facility] Work Phone: Payers Date Payer Category Payer Policy ID Unknown [employer] Social History Date Type Detail Facility Most Recent Primary Occupation Most Recent Primary Occupation [facility]; [facility] Work Phone: Instructions Note Date & Type Note Facility [facility] Work Phone: Additional Source Comments FOR RECORDS PERTAINING TO PATIENTS WHO ARE OR HAVE BEEN ENROLLED IN A CHEMICAL DEPENDENCY/SUBSTANCEABUSE PROGRAM, SOME INFORMATION MAY BE OMITTED. This clinical summary was aggregated from multiple sources. Caution should be exercised in using it in the provision of clinical care. This summary normalizes information from multiple sources, and as a consequence, information in this document may materially change the coding, format and clinical context of patient data. In addition, data may be omitted in some cases. CLINICAL DECISIONS SHOULD BE BASED ON THE PRIMARY CLINICAL RECORDS. [facility] [facility]. provides no warranty or guarantee of the accuracy or completeness of information in this document.
== END | disposition home or self-care (01) ==
PROVIDERS: Referring Provider Registered Nurse; Visit Provider Registered Nurse
DX: Z34.91 Encounter for supervision of normal pregnancy, unspecified, first trimester (principal); Z3A.12 12 weeks gestation of pregnancy
CPT/HCPCS: 76805; 76817

== ENCOUNTER → 2023-06-25 | Outpatient (CLI) | payer OTHER, SELFPAY ==
--- OUTSIDE RECORDS SUMMARY | 2023-06-25 08:16 | XMS RPT_ITS | CCD ---
Author Name Unknown Address [address] [place] [address] Organization [facility] Care Team Providers Care Burner Tender Name Role Phone Nupur Cardoso MD Unavailable [phone] Friend, Dr. Fan Unavailable Fast DO, Mary [...] Active Comments: #20 given on 04/04/21 @ [facility] Problems Active Problems Problem Classification Problem Date [...] 2 glycoprotein i antibody each Antiphospholipid atb (18244) [facility] Work [...] BE BASED ON THE PRIMARY CLINICAL RECORDS. [facility] [employer] [facility]. provides no warranty or guarantee of the accuracy or completeness of information in this document.
[2023-06-25 08:19] LABS: Absolute Neutrophil Count 8.2 X10^3/uL (2.0-7.7); Basophil# 0.06 X10^3/uL; Basophil% 0.5 % (0-1); Eosinophil# 0.09 X10^3/uL; Eosinophils% 0.8 % (0-5); Hematocrit 30.8 % (37-47); Hemoglobin 9.6 g/dL (12.0-15.0); Lymphocyte % 19.4 % (19-41); Mean Corp Hgb Conc 31.2 g/dL (32-36); Mean Corpuscular Hgb 24.1 pg (27.0-32.0); Mean Corpuscular Volume 77.4 fL (81-99); Mean Platelet Vol. 8.1 fl (6.2-12.0); Monocyte% 6.2 % (0-10); NRBC Flagged by Analyzer 0 % (0-5); Neutrophil # 8.21 X10^3/uL (2.7-7.7); Neutrophil % 72.2 % (47-70); Platelet Count 197 K/mm3 (150-450); RBC Distribution Width CV 14.6 % (11.6-14.6); RBC Distribution Width SD 40.4 fl (35.1-43.9); Red Blood Count 3.98 M/mm3 (4.2-5.4); White Blood Count 11.4 K/mm3 (4.4-11.0)
[2023-06-25 08:43] LABS: Glucose Challenge Gest 1H 50g 94 mg/dL (70-140)
[2023-06-25 09:02] LABS: HIV - WCH Non-Reactive (Nonreactive); Syphilis Antibodies Non-reactive
== END | disposition home or self-care (01) ==
LOC: PAVLAB 07:44
PROVIDERS: Obstetrics & Gynecology; Referring Provider Nurse Practitioner Women's Health; Visit Provider Nurse Practitioner Women's Health
DX: O09.90 Supervision of high risk pregnancy, unspecified, unspecified trimester (principal); Z13.1 Encounter for screening for diabetes mellitus; Z3A.00 Weeks of gestation of pregnancy not specified
CPT/HCPCS: 36415; 82950; 85025; 86703; 86780

== ENCOUNTER → 2023-08-07 | Outpatient (CLI) | payer OTHER, SELFPAY ==
[2023-08-07 13:30] LABS: Basophil# 0.07 X10^3/uL; Basophil% 0.5 % (0-1); Eosinophil# 0.11 X10^3/uL; Eosinophils% 0.8 % (0-5); Hematocrit 32.8 % (37-47); Hemoglobin 10.1 g/dL (12.0-15.0); Lymphocyte % 17.6 % (19-41); Mean Corp Hgb Conc 30.8 g/dL (32-36); Mean Corpuscular Hgb 24.6 pg (27.0-32.0); Mean Platelet Vol. 8.6 fl (6.2-12.0); Monocyte# 0.84 X10^3/uL; Monocyte% 6.2 % (0-10); NRBC Flagged by Analyzer 0 % (0-5); Neutrophil # 10.04 X10^3/uL (2.7-7.7); Neutrophil % 73.7 % (47-70); Platelet Count 174 K/mm3 (150-450); RBC Distribution Width SD 49.9 fl (35.1-43.9); White Blood Count 13.6 K/mm3 (4.4-11.0)
[2023-08-07 13:44] LABS: Ferritin 11 ng/mL (8-252); Iron 37 ug/dL (50-170); Iron Binding Capacity,Total 419 ug/dL (250-450)
[2023-08-07 13:53] LABS: Vitamin B12 304 pg/mL (211-911)
== END | disposition home or self-care (01) ==
PROVIDERS: Referring Provider Obstetrics & Gynecology; Visit Provider Obstetrics & Gynecology
DX: O99.019 Anemia complicating pregnancy, unspecified trimester (principal); Z3A.00 Weeks of gestation of pregnancy not specified
CPT/HCPCS: 36415; 82607; 82728; 83540; 83550; 85025

== ENCOUNTER → 2023-08-19 | Outpatient (CLI) | payer OTHER, SELFPAY | END | disposition home or self-care (01) | LOC: LABSPEC 15:25 | PROVIDERS: Referring Provider Obstetrics & Gynecology; Visit Provider Obstetrics & Gynecology | DX: O09.90 Supervision of high risk pregnancy, unspecified, unspecified trimester (principal); Z3A.00 Weeks of gestation of pregnancy not specified | CPT/HCPCS: 87081 ==

== ENCOUNTER → 2023-08-26 | Outpatient (CLI) | payer OTHER, SELFPAY ==
--- NOTE | 2023-08-26 07:40 | US_ITS ---
STUDY: SECOND AND THIRD TRIMESTER OBSTETRICAL ULTRASOUND - LIMITED REASON FOR EXAM: Female, 33 years old uterine size-sate discrepancy LMP: December 08, 2022. PRIOR ULTRASOUND: Comparison is made with prior study dated October 29, 2023. TECHNIQUE: Transabdominal TECHNICAL QUALITY: Adequate. FINDINGS: There is a single intrauterine fetus. The fetus is in a cephalic presentation. There is demonstrated cardiac activity with a heart rate of 145 bpm. There is a normal amniotic fluid volume. The largest amniotic fluid pocket measures 4.5 cm. The amniotic fluid index (AMANDA) is 10.95 cm. The placenta is posterior in location and is not low lying. There are Grade 2 placental changes. The cervix measures 3.1 cm in length. BIOMETRY: BPD: 9.35 cm: 38 weeks, 0 days HC: 33.24 cm: 38 weeks, 0 days AC: 33.52 cm: 37 weeks, 3 days FL: 7.31 cm: 37 weeks, 3 days Age by LMP: 37 weeks, 2 days. ENEIDA by LMP: September 14, 2023. age by prior US: 37 weeks, 2 days. ENEIDA by prior US: September 14, 2023. age by current US: 37 weeks, 4 days. ENEIDA by current US: September 12, 2023. Estimated weight: 3279 grams, +/- 492 grams, 68 percentile. US/OB Limited With Biometrics IMPRESSION: Single live intrauterine gestation with a mean gestational age of 37 weeks and 2 days. The measurements obtained today fall within normal expected range. Electronically Signed: Rocky Marquez MD at 8:36 EDT ,
== END | disposition home or self-care (01) ==
PROVIDERS: Referring Provider Obstetrics & Gynecology; Visit Provider Obstetrics & Gynecology
DX: O26.843 Uterine size-date discrepancy, third trimester (principal); Z3A.00 Weeks of gestation of pregnancy not specified
CPT/HCPCS: 76816

== ENCOUNTER 2023-09-20 07:21 | Inpatient (IN) | payer OTHER, SELFPAY ==
[2023-09-20] VITALS (89 sets, daily range): BP systolic 68–137; BP diastolic 33–94; PULSE 70–120; RESP 16–18; TEMP 36.1–37.2; O2SAT 96–100; BMI 43.1
--- NOTE | 2023-09-20 07:22 | HP.PCM.OB_ITS ---
HPI - General General Date of Admission: 09/20/23 HPI Narrative MYRTLE LLOYD, is a 33 F who presents for IOL secondary to postdates. no vb lof good fm irregular ctx Maternal Data Information ENEIDA Calculator Estimated Delivery Date Method Current WG Current Estimate 09/14/23 LMP (Certain) 40w 6d PFSH PFSH Medical History (Updated 09/13/23 @ 10:14 by Candace Flores) COVID Wears contact lenses Alcohol use History of hemorrhoids Non-smoker Vaginal delivery 41 weeks gestation of Home Medications ?Medication ?Instructions ?Recorded ?Last Taken ?Type docosahexaenoic acid 200 mg 1 mg PO DAILY Check with primary 01/23/21 01/22/21 History capsule ( DHA) doctor ondansetron 4 mg disintegrating 4 mg PO Q6H PRN Nausea #60 tabs 02/07/23 Unknown Rx tablet Allergy/AdvReac Type Severity Reaction Status Date / Time No Known Allergies Allergy Verified 09/13/23 10:13 Family History Grandfather Cancer Surgical History History of appendectomy Social History adopted: No household members: family housing: house current occupational status: employed current occupation: marketing current occupational exposures/hazards: No pets and animals: No history of recent travel: No sexually active: Yes Smoking Status: Never smoker alcohol intake: current details: not while substance use type: does not use caffeine: Yes chacho/taoist: Pentecostal seatbelt use: always do you feel safe at home: Yes additional social history: Spouse Arvind - [employer] and [employer] History 2 Elective abortions Hx Para 1 Spontaneous abortions Hx # Term Pregnancies Ectopic pregnancies Hx # Pregnancies Multiple births # of living children 1 Past Pregnancies Del. Date Name GA/Weeks Outcome Route Bth Weight Gen Labor Lgth Anesthesia Del Locatn Provider FOB 01/25/21 Sadia 42 live - full term 8.4 Female epid[facility] Details Expected Delivery Route/Plan Labor Preferences- CB/BF classes: no labor support person: Arvind labor intervention preferences: [] pain management options preferred: epidural cut cord/dad catch: yes : yes PP control planned: discussed/condoms discussed possible routes of delivery and associated risks: [] special requests: [] Plans Covid status: [] Flu vaccine: declined Tdap vaccine: declines Rhogam: na LARC form signed: yes Problem list reviewed and updated with the most current plan of care details and appropriate orders placed. Relevant counseling for the gestational age provided. Continue routine care and follow up unless otherwise noted in visit notes/problem list details OB Flowsheet Initial Weight: Not Recorded Date -?-?-?-?-?-?-?-?-?-?-?-?- EGA Weight BP Urine Prot -?-?-?-?-?-?-?-?-?-?-?-?- Glucose FHR FuHt Pres Dilation -?-?-?-?-?-?-?-?-?-?-?-?- Effaced St Visit Note 02/07/23 -?-?-?-?-?-?-?-?-?-?-?-?- 8w 5d 212 lb 6 oz 132/96 -?-?-?-?-?-?-?-?-?-?-?-?- 171 -?-?-?--?-?-?-?-?-?-?-?-?- kw-LMP cons with dates. CRL-17mm discussed NIPT 03/08/23 -?-?-?-?-?-?-?-?-?-?-?-?- 12w 6d 213 lb 2 oz 136/82 Nega tive -?-?-?-?-?-?-?-?-?-?-?--?- Negative 160 -?-?-?-?-?-?-?-?-?-?-?-?- LC- no vb/crampi ng. discussed and declines afp. normal nob labs. LC- no vb/cramping. discusse d and declines afp. normal nob labs. calling insurance for anatomy pricing first. 04/01/23 -?-?-?-?-?-?-?-?-?-?-?-?- 16w 2d 215 lb 4 oz 138/83 Nega tive -?-?-?-?-?-?-?-?-?-?-?-?- Negative 150 -?-?-?-?-?-?-?-?-?-?-?-?- SM- no vb silviazeke garzon reviewed labs boy on seferino morrisek at home 05/03/23 -?-?-?-?-?-?-?-?-?-?-?-?- 20w 6d 220 lb 114/74 Negative -?-?-?-?-?-?-?-?-?-?-?-?- Negative 150 -?-?-?-?-?-?-?-?-?-?-?-?- SM- no vb lof go od fm n oregular ctx 05/29/23 -?-?-?-?-?-?-?-?-?-?-?-?- 24w 4d 229 lb 2 oz 118/82 Nega tive -?-?-?-?-?-?-?-?-?-?-?-?- Negative 145 -?-?-?-?-?-?-?-?-?-?-?-?- JV- no lof, vagi nal bleeding, or dec fm. no complaints. 06/25/23 -?-?-?-?-?-?-?-?-?-?-?-?- 28w 3d 234 lb 4 oz 120/82 Nega tive -?-?-?-?-?-?-?-?-?-?-?-?- Negative 152 29 -?-?-?-?-?-?-?-?-?-?-?-?- MH-No VB, LOF. G ood FM. Declines tdap. Glucose pending. Will start FE. Larc 07/09/23 -?-?-?-?-?-?-?-?-?-?-?-?- 30w 3d 235 lb 4 oz 123/83 Nega tive -?-?-?-?-?-?-?-?-?-?-?-?- Negative 145 31 -?-?-?-?-?-?-?-?-?-?-?-?- KW- no vb/lof/ct x. good fm. FMLA papers to triage nurses today 07/31/23 -?-?-?-?-?-?-?-?-?-?-?-?- 33w 4d 240 lb 8 oz 131/87 Nega tive -?-?-?-?-?-?-?-?-?-?-?-?- Negative 156 34 -?-?-?-?-?-?-?-?-?-?--?-?- JV- no complaint s iron studies ordered with cbc for next visit. 08/07/23 -?-?-?-?-?-?-?-?-?-?-?-?- 34w 4d 239 lb 4 oz 131/82 Nega tive -?--?-?-?-?-?-?-?-?-?-?-?- Negative 144 34 -?-?-?-?-?-?-?-?-?-?-?-?- JV- went up a little. waiting on rest of studies. patient asymptomatic at this time. 08/19/23
--- NOTE | 2023-09-20 07:22 | PCM.HP.OB ---
HPI - General General Date of Admission: 09/20/23 HPI Narrative MYRTLE LLOYD, is a 33 F who presents for IOL secondary to postdates. no vb lof good fm irregular ctx Maternal Data Information ENEIDA Calculator Estimated Delivery Date Method Current WG Current Estimate 09/14/23 LMP (Certain) 40w 6d PFSH PFSH Medical History (Updated 09/13/23 @ 10:14 by Candace Flores) COVID Wears contact lenses Alcohol use History of hemorrhoids Non-smoker Vaginal delivery 41 weeks gestation of Home Medications ?Medication ?Instructions ?Recorded ?Last Taken ?Type docosahexaenoic acid 200 mg 1 mg PO DAILY Check with primary 01/23/21 01/22/21 History capsule ( [facility]) doctor ondansetron 4 mg disintegrating 4 mg PO Q6H PRN Nausea #60 tabs 02/07/23 Unknown Rx tablet Allergy/AdvReac Type Severity Reaction Status Date / Time No Known Allergies Allergy Verified 09/13/23 10:13 Family History Grandfather Cancer Surgical History History of appendectomy Social History adopted: No household members: family housing: house current occupational status: employed current occupation: marketing current occupational exposures/hazards: No pets and animals: No history of recent travel: No sexually active: Yes Smoking Status: Never smoker alcohol intake: current details: not while substance use type: does not use caffeine: Yes chacho/samaritan: Restorationism seatbelt use: always do you feel safe at home: Yes additional social history: Spouse Arvind - [employer] and [employer] History 2 Elective abortions Hx Para 1 Spontaneous abortions Hx # Term Pregnancies Ectopic pregnancies Hx # Pregnancies Multiple births # of living children 1 Past Pregnancies Del. Date Name GA/Weeks Outcome Route Bth Weight Gen Labor Lgth Anesthesia Del Locatn Provider FOB 01/25/21 Sadia 42 live - full term 8.4 Female epid[facility] Visit Details Expected Delivery Route/Plan Labor Preferences- CB/BF classes: no labor support person: Arvind labor intervention preferences: [] pain management options preferred: epidural cut cord/dad catch: yes : yes PP control planned: discussed/condoms discussed possible routes of delivery and associated risks: [] special requests: [] Plans Covid status: [] Flu vaccine: declined Tdap vaccine: declines Rhogam: na LARC form signed: yes Problem list reviewed and updated with the most current plan of care details and appropriate orders placed. Relevant counseling for the gestational age provided. Continue routine care and follow up unless otherwise noted in visit notes/problem list details OB Flowsheet Initial Weight: Not Recorded Date <del>?</del> EGA Weight BP Urine Prot <del>?</del> Glucose FHR FuHt Pres Dilation <del>?</del> Effaced St Visit Note 02/07/23 <del>?</del> 8w 5d 212 lb 6 oz 132/96 <del>?</del> 171 <del>?</del> kw-LMP cons with dates. CRL-17mm discussed NIPT 03/08/23 <del>?</del> 12w 6d 213 lb 2 oz 136/82 Negative <del>?</del> Negative 160 <del>?</del> LC- no vb/cramping. discussed and declines afp. normal nob labs. LC- no vb/cramping. discussed and declines afp. normal nob labs. calling insurance for anatomy pricing first. 04/01/23 <del>?</del> 16w 2d 215 lb 4 oz 138/83 Negative <del>?</del> Negative 150 <del>?</del> SM- no vb cramping reviewed labs boy on sneak peek at home 05/03/23 <del>?</del> 20w 6d 220 lb 114/74 Negative <del>?</del> Negative 150 <del>?</del> SM- no vb lof good fm n oregular ctx 05/29/23 <del>?</del> 24w 4d 229 lb 2 oz 118/82 Negative <del>?</del> Negative 145 <del>?</del> JV- no lof, vaginal bleeding, or dec fm. no complaints. 06/25/23 <del>?</del> 28w 3d 234 lb 4 oz 120/82 Negative <del>?</del> Negative 152 29 <del>?</del> MH-No VB, LOF. Good FM. Declines tdap. Glucose pending. Will start FE. Larc 07/09/23 <del>?</del> 30w 3d 235 lb 4 oz 123/83 Negative <del>?</del> Negative 145 31 <del>?</del> KW- no vb/lof/ctx. good fm. FMLA papers to triage nurses today 07/31/23 <del>?</del> 33w 4d 240 lb 8 oz 131/87 Negative <del>?</del> Negative 156 34 <del>?</del> JV- no complaints iron studies ordered with cbc for next visit. 08/07/23 <del>?</del> 34w 4d 239 lb 4 oz 131/82 Negative <del>?</del> Negative 144 34 <del>?</del> JV- hg went up a little. waiting on rest of studies. patient asymptomatic at this time. 08/19/23 <del>?</del> 36w 2d 242 lb 130/84 <del>?</del> 145 39 Cephalic 0.5 <del>?</del> SM- no vb lof good fm n oregualr ctx gbs done 08/26/23 <del>?</del> 37w 2d 242 lb 2 oz 129/80 Negative <del>?</del> Negative 140 37 Cephalic 2.5 <del>?</del> 50 -2 KW- no vb/lof/ctx. good fm. GBS neg. doing well KW- no vb/lof/ctx. good fm. GBS neg. doing well. Growth US 68% 09/02/23 <del>?</del> 38w 2d 244 lb 125/85 Negative <del>?</del> Negative 144 40 Cephalic 2.5 <del>?</del> 50 -2 JV- internal os is a little smaller than external. no lof, vaginal bleeding, or dec fm. 09/09/23 <del>?</del> 39w 2d 245 lb 8 oz 136/85 Negative <del>?</del> Negative 125 40 Cephalic 3 <del>?</del> 70 -2 JV- no lof, vaginal bleeding, or dec fm. lost mucous plug last night. 09/13/23 <del>?</del> 39w 6d 245 lb 140/96 129/90 <del>?</del> 150 40 Cephalic 3 <del>?</del> 70 -2 KW- no vb/lof/ctx. good fm. IOL set up for next week 09/20/23 <del>?</del> 40w 6d 243 lb 6.245 oz <del>?</del> <del>?</del> NST FHR Rate Baby A Baseline: 130 Variability:: Moderate Accelerations:: 15 x 15 Decelerations:: None NST Reactive:: Yes FHR Category:: Category I Uterine Activity:: irregular ROS Constitutional Constitutional: Reports systems reviewed and no addt'l complaints, except as documented Eyes Eyes: Denies change in vision ENT HEENT: Reports systems reviewed and no addt'l complaints, except as documented; Denies headache(s) Cardiovascular Cardiovascular: Reports systems reviewed and no addt'l complaints, except as documented; Denies chest pain or dyspnea Respiratory/Chest Respiratory/Chest: Reports systems reviewed and no addt'l complaints, except as documented Gastrointestinal Gastrointestinal: Reports systems reviewed and no addt'l complaints, except as documented; Denies abdominal pain Genitourinary Genitourinary: Reports systems reviewed and no addt'l complaints, except as documented, contractions Details: present (irregular) and movement Details: present; Denies dysuria or genital lesions Musculoskeletal Musculoskeletal: Reports systems reviewed and no addt'l complaints, except as documented Neurologic Neurologic: Reports systems reviewed and no addt'l complaints, except as documented Endocrine Endocrinology: Reports systems reviewed and no addt'l complaints, except as documented Vital Signs Vital Signs Vital Signs: Weight Weight: 243 lb 6.245 oz Body Mass Index (BMI) 43.1 Physical Exam Const alert, oriented x3, no apparent distress and healthy appearing HEENT normocephalic and moist oral mucous membranes Head and Scalp: atraumatic Neck full ROM, no lymphadenopathy, supple and thyroid normal General: trachea midline Lymph Lymphatic: no lymphadenopathy noted Chest inspection of chest normal Resp normal respiratory effort Cardio regular rate GI normal to inspection, nondistended, normoactive bowel sounds, soft to palpation and non-tender Inspection: gravid external exam normal Manual OB Exam: estimated gestational size appropriate, presentation cephalic, dilated, effaced and station Extremity normal to inspection General Extremity: Negative for edema Skin no rashes or lesions noted Neuro no focal motor deficits and deep tendon reflexes 2+ bilaterally Motor Exam: strength 5/5 throughout and clonus absent Psych mental status grossly normal Labs Labs Labs: Blood Type A POSITIVE Antibody Screen NEGATIVE Hct 32.8 % (37-47) L Hgb 10.1 g/dL (12.0-15.0) L Obstetrics Ultrasound Syphilis Total Ab Non-reactive Rubella IgG Antibody Reactive (Nonreactive) Hep Bs Antigen Non-Reactive (Nonreactive) Hepatitis C Antibody Non-Reactive (Nonreactive) Chlamydia DNA ([place]) Negative (Negative) N.gonorrhoeae DNA ([place]) Negative (Negative) HIV 1&2 Antibody Non-Reactive (Nonreactive) Glucose 1 Hr 50 gm 94 mg/dL (70-140) Rhogam given: No Assessment & Plan (1) : QUALIFIERS: Weeks of gestation: 39 weeks Qualified Code(s): Z3A.39 - 39 weeks gestation of COMMENT: DOC only, GBS Negative, declines genetic, carrier, and ntd screening (2) Supervision of high risk , antepartum: COMMENT: PRR ENEIDA 09/14/23 boy [place] Spouse Arvind (3) Obesity affecting : QUALIFIERS: Trimester: third trimester Obesity type affecting : unspecified obesity Qualified Code(s): O99.213 - Obesity complicating , third trimester COMMENT: nl A1C, healthy weight gain (4) Anemia affecting : QUALIFIERS: Trimester: third trimester Qualified Code(s): O99.013 - Anemia complicating , third trimester COMMENT: start FE. Recheck 4 wk (5) Uterine size-date discrepancy, third trimester: COMMENT: growth US PLAN: Plan Patient presents IOL, plan management for with pitocin/AROM. Pain management: plans epidural. GBS negative. Management of any complications: none I have reviewed the [facility] and made any clinically relevant updates.
[2023-09-20] MEDS: Lactated Ringers 1,000 ML 50 ML IV (07:45)
[2023-09-20 08:07] LABS: Absolute Lymphocyte Count 1.91 X10^3/uL (0.83-4.51); Absolute Neutrophil Count 8.7 X10^3/uL (2.0-7.7); Basophil# 0.05 X10^3/uL; Basophil% 0.4 % (0-1); Eosinophil# 0.07 X10^3/uL; Eosinophils% 0.6 % (0-5); Hematocrit 36.7 % (37-47); Hemoglobin 11.7 g/dL (12.0-15.0); Lymphocyte # 1.91 X10^3/ul (0.83-4.51); Lymphocyte % 16.6 % (19-41); Mean Corp Hgb Conc 31.9 g/dL (32-36); Mean Corpuscular Hgb 25.9 pg (27.0-32.0); Mean Corpuscular Volume 81.2 fL (81-99); Mean Platelet Vol. 8.8 fl (6.2-12.0); Monocyte# 0.67 X10^3/uL; Monocyte% 5.8 % (0-10); NRBC Flagged by Analyzer 0 % (0-5); Neutrophil # 8.68 X10^3/uL (2.7-7.7); Neutrophil % 75.7 % (47-70); Platelet Count 188 K/mm3 (150-450); RBC Distribution Width CV 17.1 % (11.6-14.6); RBC Distribution Width SD 50.7 fl (35.1-43.9); Red Blood Count 4.52 M/mm3 (4.2-5.4); White Blood Count 11.5 K/mm3 (4.4-11.0)
[2023-09-20] MEDS: Oxytocin 15 Units/NS 250ml 15 UNITS/250 ML IV.SOLN 2 UNITS IV (08:51)
[2023-09-20 09:26] LABS: Syphilis Antibodies Non-reactive
[2023-09-20] MEDS: Lactated Ringers 1,000 ML 999 ML IV (15:03)
[2023-09-20] MEDS: fentaNYL-bupivacaine (epidural) 100 ML BAG EPIDURAL (16:03)
[2023-09-20] MEDS: LACTATED RINGERS 500 ML 999 ML IV ×2 (16:10→16:41)
[2023-09-20] MEDS: ePHEDrine Sulfate 50 MG/ML Ampul 10 MG IV ×4 (16:20→20:09)
[2023-09-20] MEDS: Lactated Ringers 1,000 ML 200 ML IV (19:53)
[2023-09-20] MEDS: ePHEDrine Sulfate 50 MG/ML Ampul 10 MG IM ×4 (20:10→20:14)
--- NOTE | 2023-09-20 20:14 | MDS.RN ---
JCoteat from anesthesia at bedside and administered 15mg ephedrine IV and 35mg ephedrine IM due to decreased blood pressures.
[2023-09-20] MEDS: Ondansetron 4 MG/2 ML Vial IV (20:50)
--- NOTE | 2023-09-20 22:21 | EX.PCM.OBRPT ---
Assessment & Plan (1) Uterine size-date discrepancy, third trimester: COMMENT: growth US (2) Anemia affecting : QUALIFIERS: Trimester: third trimester Qualified Code(s): O99.013 - Anemia complicating , third trimester COMMENT: start FE. Recheck 4 wk (3) Obesity affecting : QUALIFIERS: Obesity type affecting : unspecified obesity Trimester: third trimester Qualified Code(s): O99.213 - Obesity complicating , third trimester COMMENT: nl A1C, healthy weight gain (4) Supervision of high risk , antepartum: COMMENT: PRR ENEIDA 09/14/23 a[facility] [place] Spouse Arvind (5) : QUALIFIERS: Weeks of gestation: 39 weeks Qualified Code(s): Z3A.39 - 39 weeks gestation of COMMENT: DOC only, GBS Negative, declines genetic, carrier, and ntd screening (6) Vaginal delivery: COMMENT: SM IOL postdates alex suggs 41 Maternal Data Information ENEIDA Calculator Estimated Delivery Date Method Current WG Current Estimate 09/14/23 LMP (Certain) 41w 0d Vaginal Delivery Operative Information Pre-Operative Diagnosis: see a/p diagnoses Post-Operative Diagnosis: same Surgery / Procedure Performed: Spontaneous Vaginal Delivery Type of Anesthesia: Epidural Special Medications: none Estimated Blood Loss: 200 Fluids Replaced: crystalloid Findings Description of Procedure: Patient began pushing and delivered the head in the CARMINE presentation. The head was delivered atraumatically . The anterior and posterior shoulders delivered without complication followed by the rest of the infant and the was placed on the maternal abdomen. Delayed cord clamping was employed for approximately 60 seconds. Cord was clamped and cut and gentle traction was applied to the cord and the placenta delivered spontaneously immediately following it was noted to be intact with three-vessel cord. The perineum and vagina were inspected and noted to have no signficant laceration. EBL was 200 cc. Patient and tolerated delivery well. Amniotic Fluid Description: Clear Placental Delivery Description: Spontaneous Placenta Disposition: [facility] Cord Vessel Description: 3 Vessels Cord Entanglement: None Delayed Cord Clamping: Yes Post Vaginal Delivery Medications Given After Delivery: IV Pitocin Episiotomy Description: None Complication Complications: None Procedures Urinary/Genital [id number]: [id number] Vaginal Delivery global pkg
--- NOTE | 2023-09-20 22:22 | DCINST_ITS ---
Discharge Instructions Diet Discharge Diet: No restrictions Activity Discharge Activity: Return to Normal Activity, May Not Drive (while taking narcotic pain medications.) and May Shower May resume sexual activity in: 4-6 weeks Dressing / Incision Call your doctor if your incision/area has: Continuous Slow Oozing, Sudden Increased Bleeding, Increased Pain/ Swelling, Increased Redness and Foul Smelling Discharge Follow Up Care Please Follow Up With: Leeann Hamilton MD When: Call [phone] to make an appointment with your doctor in 6 weeks. If you had elevated blood pressure or 4th degree laceration, you will need to be seen in 2 weeks. Test Results: Test results from this visit will be discussed in further detail at your follow- up appointment, if applicable. Discharge Plan Admission Admit Date/Time: 09/20/23 07:21 Attending Provider: Leeann Hamilton Primary Care Provider: Care Physician,Kathy Primary Discharge Orders/Prescriptions Prescriptions: No Action DHA 200 mg Capsule 1 mg PO DAILY ferrous sulfate [iron] 325 mg (65 mg iron) tablet 325 mg PO DAILY Referrals / Follow Up: Care Physician,No Primary [Primary Care Provider] - Disposition Disposition (needs filled in before D/C Order can be placed): Home, Self Care
[2023-09-21] VITALS (47 sets, daily range): BP systolic 109–123; BP diastolic 63–85; PULSE 70–106; RESP 16; TEMP 36.3–37; O2SAT 88–100
[2023-09-21] MEDS: Oxytocin 15 Units/NS 250ml 15 UNITS/250 ML IV.SOLN 83 UNITS IV (00:56)
[2023-09-21] MEDS: Naproxen 500 MG Tablet PO (02:55)
[2023-09-21] MEDS: Acetaminophen 500 MG Tablet 1000 MG PO (07:59)
[2023-09-22 00:50] VITALS: BP 111/79; PULSE 76; RESP 16; TEMP 36.4; O2SAT 96
[2023-09-22 06:00] VITALS: BP 109/79; PULSE 71; RESP 18; TEMP 36.6; O2SAT 97
--- NOTE | 2023-09-22 08:30 | PCM.PN.OB ---
Subjective Subjective Patient doing well without complaints. Tolerating PO. Ambulating and voiding without difficulty. feeding well. Denies chest pain, shortness of breath, calf pain/swelling, fevers, chills, lightheadedness. Objective Data Objective Data Vital Signs: Vital Signs Temp Pulse Resp BP Pulse Ox O2 Del Method 97.8 F 71 18 109/79 97 Room Air 09/22/23 06:00 09/22/23 06:00 09/22/23 06:00 09/22/23 06:00 09/22/23 06:00 09/22/23 06:00 Oxygen Delivery Method Room Air Weight: 243 lb 6.245 oz Body Mass Index (BMI) 43.1 Intake & Output: Intake and Output for Last 24 Hours 09/20/23 09/21/23 09/22/23 23:59 23:59 23:59 Intake Total 3227.98 / 3227.98 1335.30 / 1335.30 Output Total 650 / 650 600 / 600 Balance 2577.98 / 2577.98 735.30 / 735.30 Lab / Micro Data 09/20/23 07:38 ROS Constitutional Constitutional: Reports systems reviewed and no addt'l complaints, except as documented Cardiovascular Cardiovascular: Reports systems reviewed and no addt'l complaints, except as documented Respiratory/Chest Respiratory/Chest: Reports systems reviewed and no addt'l complaints, except as documented Gastrointestinal Gastrointestinal: Reports systems reviewed and no addt'l complaints, except as documented Physical Exam Const alert, oriented x3 and no apparent distress HEENT Head and Scalp: atraumatic Resp normal respiratory effort GI soft to palpation and non-tender Bimanual Exam - Vag & Uterus: uterus non-tender Uterus Palpation: uterus fundus firm (below Umbilicus) Assessment & Plan (1) Vaginal delivery: COMMENT: SM IOL postdates boy ifeanyi 41 PLAN: Plan s/p PPD # 1 1. routine post delivery care 2. breast feeding- support given 3. rh positive 4. rubella immune
[2023-09-22 09:40] VITALS: BP 124/90; PULSE 73; RESP 16; TEMP 37.1; O2SAT 100
== END 2023-09-22 10:50 | disposition home or self-care (01) | DRG 807 ==
PROVIDERS: Advanced Practice Midwife; Admitting Provider Obstetrics & Gynecology; Referring Provider Obstetrics & Gynecology; Visit Provider Obstetrics & Gynecology
DX: O99.214 Obesity complicating childbirth (principal); Z37.0 Single live birth; D64.9 Anemia, unspecified; O26.843 Uterine size-date discrepancy, third trimester; O99.02 Anemia complicating childbirth; Z3A.39 39 weeks gestation of pregnancy
CPT/HCPCS: 59025; 59050; 85025; 86780; 86850; 86900; 86901; 99221; J7120; G0378; J2405